=== PATIENT | male | born 1985 | race Caucasian/White ===

== ENCOUNTER 2023-10-01 11:13 | Inpatient (IN) | payer MEDICAID ==
[~2023-10-01] VITALS: Ht 170.2 cm; Wt 48.9 kg
[2023-10-01] MEDS ORDERED: MIRT-89 PO (11:52)
[2023-10-01] MEDS ORDERED: HYDR-4808 PO (11:52)
[2023-10-01] MEDS ORDERED: PRAZ1 PO (11:52)
[2023-10-01] MEDS ORDERED: TRAZ-252 PO (11:52)
[2023-10-01] MEDS ORDERED: LORazepam 2 MG TABLET PO PRN (12:00)
[2023-10-01] MEDS ORDERED: HALOPERIDOL 5 MG TABLET PO PRN (12:00)
[2023-10-01 12:51] VITALS: BP 112/75; PULSE 59; RESP 16; TEMP 98; O2SAT 100
[2023-10-01 20:15] VITALS: BP 115/76; PULSE 60; RESP 17; TEMP 97.2; O2SAT 97
[2023-10-02] MEDS: ZOLPIDEM TARTRATE 10 MG TABLET PO PRN (03:10)
[2023-10-02 08:03] LABS: BASOPHILS % (AUTO) 0.8 % (0.0-2.0); EOSINOPHILS % (AUTO) 3.4 % (1.0-6.0); HEMATOCRIT 40.5 % (41-53); HEMOGLOBIN 13.4 g/dL (13.5-17.5); LYMPHOCYTES # (AUTO) 1.8 K/uL (1.0-4.8); LYMPHOCYTES % (AUTO) 23.2 % (22.0-44.0); MEAN CORPUSCULAR HEMOGLOBIN 29.6 pg (26.0-34.0); MEAN CORPUSCULAR HGB CONC 33.2 G/dL (31.0-37.0); MEAN CORPUSCULAR VOLUME 89 fL (80-100); MONOCYTES # (AUTO) 0.6 K/uL (0.1-1.0); MONOCYTES % (AUTO) 7.3 % (2.0-9.0); NEUTROPHILS # (AUTO) 5.2 K/uL (1.8-7.7); NEUTROPHILS % (AUTO) 65.3 % (40.0-70.0); PLATELET COUNT (AUTO) 293 K/uL (150-450); RED BLOOD CELL COUNT(AUTO) 4.54 MIL/uL (4.50-5.90); RED CELL DISTRIBUTION WIDTH 13.6 % (11.5-14.5)
[2023-10-02 08:19] VITALS: RESP 16
[2023-10-02 08:46] LABS: ALANINE AMINOTRANSFERASE 26 U/L (12-78); ALBUMIN 3.4 g/dL (3.4-5.0); ALKALINE PHOSPHATASE 71 U/L (46-116); ANION GAP 6 mmol/L (8-16); ASPARTATE AMINOTRANSFERASE 31 U/L (15-37); BILIRUBIN,TOTAL 0.4 mg/dL (0.1-1.0); CALCIUM, TOTAL 9.3 mg/dL (8.8-10.5); CARBON DIOXIDE 28 mmol/L (22-29); CHLORIDE 106 mmol/L (98-107); CHOL/HDL RATIO 3.2 (4.2-7.3); CHOLESTEROL 147 mg/dL (131-200); CREATININE 0.69 mg/dL (0.60-1.30); FREE T4 (FREE THYROXINE) 0.81 ng/dL (0.76-1.46); GLOMERULAR FILTR. RATE CALC > 60 mL/min (>60); GLUCOSE,RANDOM 71 mg/dL (70-110); HDL CHOLESTEROL 46 mg/dL (40-60); LDL CHOL (CALC.) 90 mg/dL (0-130); POTASSIUM 4.1 mmol/L (3.5-5.1); SODIUM SERUM 140 mmol/L (136-145); THYROID STIMULATING HORMONE 2.35 uIU/mL (0.36-3.74); TOTAL PROTEIN, SERUM 7.1 g/dL (6.4-8.2); TRIGLYCERIDES 56 mg/dL (15-150); UREA NITROGEN, BLOOD 13 mg/dL (7-18)
[2023-10-02] MEDS ORDERED: HydrOXYzine PAMOATE 25 MG CAPSULE PO PRN (10:15)
[2023-10-02] MEDS ORDERED: ALBUTEROL SULFATE HFA 90 MCG/PUFF 8 GM INHALER IH PRN (13:30)
[2023-10-02] MEDS ORDERED: IBUPROFEN 400 MG TABLET PO PRN (13:30)
[2023-10-02] MEDS ORDERED: PETROLATUM,WHITE 28 GM JELLY TP PRN (13:30)
[2023-10-02] MEDS ORDERED: DOCUSATE SODIUM 100 MG CAPSULE PO PRN (13:30)
[2023-10-02] MEDS ORDERED: GuaiFENesin/D-METHORPHAN [SUGAR-FREE] 200-20MG/10 ML SYRUP UDCUP PO PRN (13:30)
[2023-10-02] MEDS ORDERED: MAG HYDROX/ALUMINUM HYD/SIMETH ES 30 ML SUSPENSION UDCUP PO PRN (13:30)
[2023-10-02] MEDS ORDERED: CloNIDine HCL 0.1 MG TABLET PO PRN (13:30)
[2023-10-02] MEDS ORDERED: LOPERAMIDE HCL 2 MG CAPSULE PO PRN (13:30)
[2023-10-02] MEDS ORDERED: ONDANSETRON HCL 4 MG TABLET PO PRN (13:30)
[2023-10-02] MEDS ORDERED: NICOTINE 14 MG/24 HOUR PATCH TD PRN (13:30)
[2023-10-02] MEDS ORDERED: ACETAMINOPHEN 325 MG TABLET PO PRN (13:30)
[2023-10-02] MEDS ORDERED: MAGNESIUM HYDROXIDE SUSPENSION 30 ML UDCUP PO PRN (13:30)
== END 2023-10-02 15:45 | disposition home or self-care (01) | DRG 751 ==
LOC: B3A 11:54
PROVIDERS: ADMIT Psychiatry & Neurology Psychiatry; ATTEND Psychiatry & Neurology Psychiatry
DX: F33.2 Major depressive disorder, recurrent severe without psychotic features (principal); R45.851 Suicidal ideations; F43.12 Post-traumatic stress disorder, chronic; Z88.0 Allergy status to penicillin; Z59.02 Unsheltered homelessness; Z88.2 Allergy status to sulfonamides; Z56.0 Unemployment, unspecified
CPT/HCPCS: 80053; 80061; 84439; 84443; 85025; 86592

== ENCOUNTER 2023-10-25 08:48 | Inpatient (IN) | payer MEDICAID ==
[~2023-10-25] VITALS: Ht 170.2 cm; Wt 51.7 kg
[2023-10-25] MEDS ORDERED: QUEtiapine FUMARATE 100 MG TABLET PO PRN (17:30)
[2023-10-25] MEDS ORDERED: FLUO-341 PO (17:39)
[2023-10-25] MEDS ORDERED: DOCU-385 PO (18:51)
[2023-10-25] MEDS ORDERED: LACT10SO10 PO (18:52)
[2023-10-25] MEDS ORDERED: ACET-2247 PO (18:53)
[2023-10-26 14:27] VITALS: BP 114/81; PULSE 81; RESP 18; TEMP 98; O2SAT 98
[2023-10-26] MEDS ORDERED: DOCUSATE SODIUM 100 MG CAPSULE PO PRN (19:00)
[2023-10-26] MEDS ORDERED: BENZOCAINE/MENTHOL LOZENGE PO PRN (19:00)
[2023-10-26] MEDS ORDERED: ALBUTEROL SULFATE HFA 90 MCG/PUFF 8 GM INHALER IH PRN (19:00)
[2023-10-26] MEDS ORDERED: MAG HYDROX/ALUMINUM HYD/SIMETH ES 30 ML SUSPENSION UDCUP PO PRN (19:00)
[2023-10-26] MEDS ORDERED: PETROLATUM,WHITE 28 GM JELLY TP PRN (19:00)
[2023-10-26] MEDS ORDERED: MAGNESIUM HYDROXIDE SUSPENSION 30 ML UDCUP PO PRN (19:00)
[2023-10-26] MEDS ORDERED: BACITRACIN 28 GM OINTMENT TP PRN (19:00)
[2023-10-26] MEDS ORDERED: LOPERAMIDE HCL 2 MG CAPSULE PO PRN (19:00)
[2023-10-26] MEDS ORDERED: ONDANSETRON HCL 4 MG TABLET PO PRN (19:00)
[2023-10-26] MEDS ORDERED: CloNIDine HCL 0.1 MG TABLET PO PRN (19:00)
[2023-10-26] MEDS ORDERED: OMEPRAZOLE 20 MG CAPSULE PO PRN (19:00)
[2023-10-26 21:24] VITALS: BP 140/78; PULSE 87; RESP 18; TEMP 97.8; O2SAT 98
[2023-10-26] MEDS: IBUPROFEN 600 MG TABLET PO PRN (21:44)
[2023-10-26] MEDS: LORazepam 2 MG TABLET PO PRN (21:44)
[2023-10-26] MEDS: ZOLPIDEM TARTRATE 10 MG TABLET PO PRN (22:10)
[2023-10-26 22:27] VITALS: TEMP 97.7
[2023-10-27 10:20] VITALS: BP 115/66; PULSE 84; RESP 18; TEMP 97.3; O2SAT 97
[2023-10-27] MEDS: ESCITALOPRAM OXALATE 10 MG TABLET PO SCH (13:05)
[2023-10-27 16:42] VITALS: BP 123/75; PULSE 88; RESP 18; O2SAT 98
[2023-10-27 22:05] VITALS: BP 114/76; PULSE 84; RESP 18; TEMP 97.6; O2SAT 97
[2023-10-28 08:04] VITALS: BP 115/78; PULSE 87; RESP 18; TEMP 98.2; O2SAT 98
[2023-10-28 21:23] VITALS: BP 121/75; PULSE 75; RESP 17; TEMP 98
[2023-10-28 23:00] VITALS: BP 11/80; PULSE 76; RESP 18; TEMP 97.8
[2023-10-29 08:19] VITALS: BP 114/75; PULSE 69; RESP 18; TEMP 97.7
[2023-10-29] MEDS: ACETAMINOPHEN 325 MG TABLET PO PRN (08:21)
[2023-10-29 09:13] VITALS: BP 114/75; PULSE 87; RESP 18; TEMP 97.7; O2SAT 98
[2023-10-29 12:39] VITALS: BP 120/78; PULSE 76; RESP 17
[2023-10-29 20:45] VITALS: BP 127/67; PULSE 63; RESP 18; TEMP 98.4; O2SAT 99
[2023-10-29] MEDS: PRAZOSIN HCL 2 MG CAPSULE PO SCH (21:25)
[2023-10-29 22:00] VITALS: TEMP 98
[2023-10-30] MEDS: ESCITALOPRAM OXALATE 10 MG TABLET PO SCH (08:14)
[2023-10-30 08:19] VITALS: BP 114/75; PULSE 69; RESP 18; TEMP 97.7; O2SAT 98
[2023-10-30 14:40] VITALS: BP 115/74; PULSE 72; RESP 17
[2023-10-30] MEDS: TiZANidine HCL 4 MG TABLET PO PRN (14:44)
[2023-10-30] MEDS: DICLOFENAC SODIUM 1% 100 GM GEL [2GM] TP PRN (14:44)
[2023-10-30 21:07] VITALS: BP 117/77; PULSE 86; RESP 16; TEMP 97.7; O2SAT 98
[2023-10-30 22:10] VITALS: RESP 18
[2023-10-31] VITALS (9 sets, daily range): BP systolic 96–130; BP diastolic 65–80; PULSE 70–84; RESP 18–19; TEMP 96–98; O2SAT 97–100
[2023-11-01 10:39] VITALS: RESP 20
[2023-11-01 21:04] VITALS: BP 120/75; PULSE 87; RESP 18; TEMP 97.6; O2SAT 98
[2023-11-01 22:04] VITALS: RESP 18
[2023-11-02] VITALS (7 sets, daily range): BP systolic 101–124; BP diastolic 68–77; PULSE 75–85; RESP 17–18; TEMP 97–98.8; O2SAT 98–100
[2023-11-02] MEDS ORDERED: ESCI20TA87 PO (12:03)
[2023-11-02] MEDS ORDERED: PRAZ2 PO ×2 (12:04→12:28)
[2023-11-02] MEDS ORDERED: ESCI-8 PO (12:26)
[2023-11-02] MEDS: TraMADol HCL 50 MG TABLET PO PRN (16:41)
[2023-11-03 06:40] VITALS: BP 127/79; PULSE 69; RESP 18; TEMP 98.1; O2SAT 98
[2023-11-03 10:54] VITALS: BP 111/68; PULSE 86; RESP 18; TEMP 98.4; O2SAT 97
== END 2023-11-03 14:30 | disposition home or self-care (01) | DRG 751 ==
LOC: B2S 17:37 → UNDOADMIN 17:37 → 3EI 10-26 13:04
PROVIDERS: ADMIT Psychiatry & Neurology Child & Adolescent Psychiatry; ATTEND Psychiatry & Neurology Child & Adolescent Psychiatry
PROC: GZ52ZZZ Individual Psychotherapy, Cognitive (ICD-10-PCS; principal; 2023-10-27)
DX: F33.2 Major depressive disorder, recurrent severe without psychotic features (principal); F12.10 Cannabis abuse, uncomplicated; F41.9 Anxiety disorder, unspecified; G47.00 Insomnia, unspecified; K59.00 Constipation, unspecified; Z20.822 Contact with and (suspected) exposure to COVID-19; Z88.0 Allergy status to penicillin; Z59.00 Homelessness unspecified; Z88.2 Allergy status to sulfonamides; Z56.0 Unemployment, unspecified; Z79.899 Other long term (current) drug therapy
CPT/HCPCS: 73030-TC; Z7610